=== PATIENT | female | born 1960 | race Caucasian/White ===

== ENCOUNTER 2016-10-03 19:38 | Emergency (ER) | payer OTHER ==
[~2016-10-03] VITALS: Ht 160 cm; Wt 102.1 kg
[2016-10-03 20:43] LABS: BASO % 0.3 % (0.0-1.0); EOS # 0.2 K/mm3 (0.0-0.50); EOS % 2.4 % (0.0-3.0); LARGE UNSTAINED CELL # 0.2 K/mm3 (0.0-0.4); LYMPH # 1.8 K/mm3 (1.5-4.5); MEAN CORPUSCULAR HGB CONC 32.3 g/dl (32.0-36.5); MEAN CORPUSCULAR VOLUME 92.8 fl (80.0-96.0); MONO # 0.5 K/mm3 (0.0-0.8); MONO % 5.8 % (0.0-5.0); NEUTROPHILS # 5.9 K/mm3 (1.8-7.7); NEUTROPHILS % 68.4 % (36.0-66.0); PLATELET COUNT, AUTOMATED 272 k/mm3 (150-450); RED CELL DISTRIBUTION WIDTH 13.6 % (11.5-14.5); WHITE BLOOD COUNT 8.6 K/mm3 (4.0-10.0)
[2016-10-03] MEDS ORDERED: ASPIRIN 325 MG TAB PO ONE (20:45)
[2016-10-03] MEDS ORDERED: ASPIRIN 81 MG CHEW TABLET As Ordered ONE (20:47)
[2016-10-03 20:53] LABS: ANION GAP 5 MEQ/L (8-16); BLOOD UREA NITROGEN 12 MG/DL (7-18); CALCIUM LEVEL 9.3 MG/DL (8.5-10.1); CARBON DIOXIDE LEVEL 30 MEQ/L (21-32); CHLORIDE LEVEL 104 MEQ/L (98-107); CREATININE FOR GFR 0.95 MG/DL (0.55-1.02); GLOMERULAR FILTRATION RATE > 60.0 (>51); GLUCOSE, FASTING 104 MG/DL (70-105); POTASSIUM SERUM 3.6 MEQ/L (3.5-5.1); SODIUM LEVEL 139 MEQ/L (136-145)
[2016-10-03 21:00] VITALS: BP 156/84
[2016-10-03] MEDS ORDERED: ATENOLOL 25 MG TAB PO ONE (21:00)
[2016-10-03 21:11] LABS: INR 1.03
[2016-10-03 21:26] LABS: ALBUMIN 3.6 GM/DL (3.2-5.2); ALKALINE PHOSPHATASE 70 U/L (45-117); ALT/SGPT 36 U/L (12-78); AST/SGOT 21 U/L (15-37); BILIRUBIN,DIRECT 0.2 MG/DL (0.0-0.2); BILIRUBIN,TOTAL 0.4 MG/DL (0.2-1.0); TOTAL PROTEIN 7.6 GM/DL (6.4-8.2)
[2016-10-03] MEDS ORDERED: SIMETHICONE 80 MG CHEW TAB PO ONE (21:45)
[2016-10-03 22:15] VITALS: BP 161/78
[2016-10-03] MEDS ORDERED: PRIL20CA9 PO (23:01)
[2016-10-03] MEDS ORDERED: SIME1CAP PO (23:01)
[2016-10-03] MEDS ORDERED: ATEN25TA PO (23:01)
--- NOTE | 2016-10-04 08:37 | ECGEPIP ---
Stationary ECG Study [facility] - ED Test Date: 2016-10-03 Pat Name: DELMY PRESLEY Department: Room: - Gender: F Office Associate: leah : 1960 Requested By: VINOD Alston Order Number: [id number] Reading MD: Nury Mehta Measurements Intervals [place] Rate: 65 P: 25 NM: 176 QRS: -7 QRSD: 105 T: 28 QT: 392 QTc: 408 Interpretive Statements SINUS RHYTHM WITH SINUS ARRHYTHMIA MODERATE VOLTAGE CRITERIA FOR LVH, CONSIDER NORMAL VARIANT ?PRIOR INFERIOR INFARCT NO PRIOR FOR COMPARISON Electronically Signed On 10-04-2016 8:37:32 EDT by Nury Mehta
--- NOTE | 2016-10-04 09:14 | REP ---
AP portable chest: 10/03/2016. Clinical history: Chest pain. No prior pertinent study. Lungs somewhat hypoinflated. The CP angles are sharply defined. There is no lateral pleural thickening, apical scarring, effusion or definite infiltrate. Fibronodular interstitial changes are suggested. The aorta is normal for age. Airway intact. Bones with some degenerative changes in the spine. Impression: 1. Hypoinflated chest with fibronodular interstitial changes and no gross cardiomegaly, shahab edema or dense consolidation. Signed by Wellington Barrios MD 10/04/2016 08:18 P
== END 2016-10-03 23:11 | disposition home or self-care (01) ==
LOC: M ED 21:18
DX: R10.13 Epigastric pain (principal); I10 Essential (primary) hypertension; E11.9 Type 2 diabetes mellitus without complications; Z87.891 Personal history of nicotine dependence

== ENCOUNTER 2016-10-06 22:04 | Emergency (ER) | payer OTHER ==
[~2016-10-06] VITALS: Ht 160 cm; Wt 102.1 kg
[~2016-10-06 22:04] MED LIST: ATEN25TA PO; PRIL20CA9 PO; SIME1CAP PO
[2016-10-06 22:05] VITALS: BP 189/86
[2016-10-07] MEDS ORDERED: GI COCKTAIL 50ML BTL(HYOSCYAMINE/MAALOX/LIDOCAINE VISCOUS)(1:3:1) PO ONE (02:45)
[2016-10-07 02:49] LABS: BASO % 0.6 % (0.0-1.0); EOS # 0.2 K/mm3 (0.0-0.50); LARGE UNSTAINED CELL # 0.1 K/mm3 (0.0-0.4); LARGE UNSTAINED CELL % 1.6 % (0.0-4.0); LYMPH # 1.8 K/mm3 (1.5-4.5); LYMPH % 21.7 % (24.0-44.0); MEAN CORPUSCULAR HEMOGLOBIN 30.4 pg (27.0-33.0); MEAN CORPUSCULAR HGB CONC 33.1 g/dl (32.0-36.5); MEAN CORPUSCULAR VOLUME 91.8 fl (80.0-96.0); MONO # 0.4 K/mm3 (0.0-0.8); MONO % 5.7 % (0.0-5.0); NEUTROPHILS # 5.1 K/mm3 (1.8-7.7); NEUTROPHILS % 67.4 % (36.0-66.0); PLATELET COUNT, AUTOMATED 253 k/mm3 (150-450); RED CELL DISTRIBUTION WIDTH 13.6 % (11.5-14.5); WHITE BLOOD COUNT 7.6 K/mm3 (4.0-10.0)
[2016-10-07 03:13] LABS: ANION GAP 8 MEQ/L (8-16); BLOOD UREA NITROGEN 15 MG/DL (7-18); CALCIUM LEVEL 8.5 MG/DL (8.5-10.1); CARBON DIOXIDE LEVEL 28 MEQ/L (21-32); CHLORIDE LEVEL 107 MEQ/L (98-107); CREATININE FOR GFR 0.97 MG/DL (0.55-1.02); GLOMERULAR FILTRATION RATE > 60.0 (>51); GLUCOSE, FASTING 143 MG/DL (70-105); SODIUM LEVEL 143 MEQ/L (136-145)
[2016-10-07] MEDS ORDERED: RANI15TA PO (04:59)
[2016-10-07] MEDS ORDERED: MAALSUS20 PO (04:59)
--- NOTE | 2016-10-07 06:22 | ECGEPIP ---
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
--- NOTE | 2016-10-07 08:26 | REP ---
Chest x-ray: Two views. History: Chest pain. Comparison chest x-ray is from October 03, 2016. Findings: There are old granulomatous residuals in the right lung and in the AP window region of the left mediastinal contour unchanged. The lungs are otherwise well inflated and clear. There are degenerative changes in the thoracic spine. Heart size is normal. Pulmonary vasculature is not increased. EKG monitoring electrodes overlie the chest. There is a right-sided cervical rib noted. Impression: No active cardiopulmonary disease. Right-sided cervical rib noted. Old granulomatous changes. Signed by Tobias Antoine MD 10/07/2016 10:14 A
--- NOTE | 2016-10-07 16:42 | ECGEPIP ---
Stationary ECG Study [facility] - ED Test Date: 2016-10-07 Pat Name: DELMY PRESLEY Department: Room: - Gender: F Fiber Optics Engineer: tejas : 1960 Requested By: VINOD Alston Order Number: [id number] Reading MD: Nury Mehta Measurements Intervals [place] Rate: 66 P: 38 [place]: 202 QRS: -6 QRSD: 114 T: 29 QT: 383 QTc: 401 Interpretive Statements SINUS RHYTHM MODERATE INTRAVENTRICULAR CONDUCTION DELAY MODERATE VOLTAGE CRITERIA FOR LVH, CONSIDER NORMAL VARIANT DECREASED RATE 10/06/16 Electronically Signed On 10-07-2016 16:42:41 EDT by Nury Mehta
== END 2016-10-07 05:19 | disposition home or self-care (01) ==
LOC: M ED 23:27
DX: R10.13 Epigastric pain (principal); Z79.899 Other long term (current) drug therapy

== ENCOUNTER → 2016-10-16 | Outpatient (CLI) | payer OTHER ==
[~2016-10-16] MED LIST changes: +MAALSUS20 PO; +RANI15TA PO
[2016-10-16 13:32] LABS: ALBUMIN 3.5 GM/DL (3.2-5.2); ALKALINE PHOSPHATASE 64 U/L (45-117); ALT/SGPT 34 U/L (12-78); AMYLASE 46 U/L (25-115); ANION GAP 6 MEQ/L (8-16); AST/SGOT 22 U/L (15-37); BILIRUBIN,TOTAL 0.5 MG/DL (0.2-1.0); BLOOD UREA NITROGEN 14 MG/DL (7-18); CALCIUM LEVEL 8.8 MG/DL (8.5-10.1); CARBON DIOXIDE LEVEL 31 MEQ/L (21-32); CHLORIDE LEVEL 105 MEQ/L (98-107); CHOLESTEROL LEVEL 166 MG/DL (<200); CREATININE FOR GFR 0.95 MG/DL (0.55-1.02); GLOMERULAR FILTRATION RATE > 60.0 (>51); GLUCOSE, FASTING 93 MG/DL (70-105); POTASSIUM SERUM 4.6 MEQ/L (3.5-5.1); SODIUM LEVEL 142 MEQ/L (136-145); TRIGLYCERIDES LEVEL 85 MG/DL (<150)
== END ==
LOC: M WUC 09:54
DX: R10.13 Epigastric pain (principal); R07.89 Other chest pain

== ENCOUNTER → 2016-10-16 | Outpatient (CLI) | payer OTHER ==
--- NOTE | 2016-10-16 11:14 | REP ---
RIGHT UPPER QUADRANT SONOGRAPHY: HISTORY: Epigastric pain. FINDINGS: Scanning through the right upper quadrant of the abdomen demonstrates a normal sized thin-walled gallbladder containing mobile 2.1 cm gallstone. No pericholecystic fluid is seen. Common bile duct is normal measuring 0.6 cm in greatest diameter. There is increased echogenicity in the liver and poor insonation consistent with fatty infiltration of the liver. No focal liver lesion is seen. Pancreas is largely obscured by abdominal gas. There is no evidence of ascites or right renal abnormality. The right kidney measures 10.1 x 4.8 x 4.3 cm. IMPRESSION: Cholelithiasis. Fatty infiltration of the liver. Signed by Tobias Antoine MD 10/16/2016 12:40 P
--- NOTE | 2016-10-17 06:16 | REP ---
Clinical: Abnormal uterine bleeding. Technique: Transabdominal pelvic ultrasound followed by transvaginal examination for better evaluation of the endometrium and adnexa. Findings: Bladder is unremarkable and measures 5.8 x 4.4 x 2.7 cm . Heterogeneous anteverted uterus measures 11.9 x 3.4 x 5.6 cm . The endometrial complex measures 13 mm thickness. No discrete uterine or endometrial abnormalities are appreciated. Few Nabothian cysts identified in the cervical region. Bilateral ovaries are normal in appearance and vascularity without evidence for torsion. Right ovary measures 2.6 x 1.5 x 1.9 cm. Left ovary measures 2.9 x 1.3 x 2.6 cm. No pelvic fluid or adnexal mass lesion . Impression: 1. Relatively normal pelvic ultrasound. Signed by Jermaine Crabtree MD 10/17/2016 06:07 A
== END ==
LOC: M RAD 08:44
PROVIDERS: ATTEND Nurse Practitioner Family
DX: R10.13 Epigastric pain (principal); K76.0 Fatty (change of) liver, not elsewhere classified; K80.20 Calculus of gallbladder without cholecystitis without obstruction; N93.8 Other specified abnormal uterine and vaginal bleeding

== ENCOUNTER → 2016-12-23 | Outpatient (CLI) | payer OTHER ==
[2016-12-23 18:08] LABS: BASO # 0.1 K/mm3 (0.0-0.2); BASO % 0.7 % (0.0-1.0); EOS # 0.2 K/mm3 (0.0-0.50); EOS % 2.7 % (0.0-3.0); LYMPH # 2.3 K/mm3 (1.5-4.5); LYMPH % 24.4 % (24.0-44.0); MEAN CORPUSCULAR HEMOGLOBIN 31.5 pg (27.0-33.0); MEAN CORPUSCULAR HGB CONC 33.3 g/dl (32.0-36.5); MEAN CORPUSCULAR VOLUME 94.6 fl (80.0-96.0); MONO # 0.5 K/mm3 (0.0-0.8); MONO % 6.2 % (0.0-5.0); NEUTROPHILS # 5.7 K/mm3 (1.8-7.7); NEUTROPHILS % 64.1 % (36.0-66.0); RED CELL DISTRIBUTION WIDTH 13.4 % (11.5-14.5); WHITE BLOOD COUNT 8.8 K/mm3 (4.0-10.0)
[2016-12-23 18:42] LABS: ALBUMIN 3.7 GM/DL (3.2-5.2); ALKALINE PHOSPHATASE 61 U/L (45-117); ALT/SGPT 34 U/L (12-78); ANION GAP 7 MEQ/L (8-16); AST/SGOT 23 U/L (15-37); BILIRUBIN,TOTAL 0.4 MG/DL (0.2-1.0); BLOOD UREA NITROGEN 12 MG/DL (7-18); CALCIUM LEVEL 8.7 MG/DL (8.5-10.1); CARBON DIOXIDE LEVEL 29 MEQ/L (21-32); CHLORIDE LEVEL 104 MEQ/L (98-107); FREE T4 1.15 NG/DL (0.76-1.46); GLOMERULAR FILTRATION RATE > 60.0 (>51); GLUCOSE, FASTING 68 MG/DL (70-105); POTASSIUM SERUM 3.9 MEQ/L (3.5-5.1); SODIUM LEVEL 140 MEQ/L (136-145); TOTAL PROTEIN 7.4 GM/DL (6.4-8.2)
[2016-12-23 19:30] LABS: CORTISOL BASELINE 12.6 UG/DL (4.3-22.4); PROGESTERONE 0.2 NG/ML
[2016-12-23 19:31] LABS: ESTRADIOL 39.8 PG/ML; FOLLICLE STIMULATING HORMONE 41.5 mIU/mL; PROLACTIN 5.1 NG/ML
== END ==
LOC: M WUC 14:07
PROVIDERS: ATTEND Obstetrics & Gynecology
DX: M92.60 Juvenile osteochondrosis of tarsus, unspecified ankle (principal)

== ENCOUNTER 2017-06-21 14:21 | Emergency (ER) | payer OTHER ==
[~2017-06-21] VITALS: Ht 160 cm; Wt 100.0 kg
[2017-06-21] MEDS ORDERED: AMLO5TAB2 PO (14:30)
[2017-06-21] MEDS ORDERED: NITR100C39 PO (14:30)
[2017-06-21 17:23] LABS: MUCUS, URINE RFX LARGE (NEGATIVE); SPECIFIC GRAVITY UR AUTO RFX 1.025 (1.002-1.035); SQUAM EPITHELIAL CELL UR AURFX 6 /HPF (0-6)
[2017-06-21 17:38] LABS: BASO # 0.1 10^3/uL (0.0-0.2); BASO % 0.8 % (0.0-1.0); EOS # 0.3 10^3/uL (0.0-0.50); EOS % 2.6 % (0.0-3.0); IMMATURE GRANULOCYTE % 0.6 % (0-0); LYMPH # 2.2 10^3/uL (1.5-4.5); LYMPH % 20.7 % (24.0-44.0); MEAN CORPUSCULAR HEMOGLOBIN 29.6 pg (27.0-33.0); MEAN CORPUSCULAR VOLUME 92.6 fl (80.0-96.0); MONO # 0.8 10^3/uL (0.0-0.8); MONO % 7.6 % (0.0-5.0); NEUTROPHILS # 7.2 10^3/uL (1.8-7.7); NEUTROPHILS % 67.7 % (36.0-66.0); PLATELET COUNT, AUTOMATED 428 10^3/uL (150-450); RED CELL DISTRIBUTION WIDTH 13.4 % (11.5-14.5); WHITE BLOOD COUNT 10.6 10^3/uL (4.0-10.0)
[2017-06-21 18:00] LABS: ALBUMIN 3.6 GM/DL (3.2-5.2); ALBUMIN/GLOBULIN RATIO 0.75 (1.00-1.93); ALKALINE PHOSPHATASE 73 U/L (45-117); ALT/SGPT 25 U/L (12-78); ANION GAP 7 MEQ/L (8-16); AST/SGOT 19 U/L (7-37); BILIRUBIN,DIRECT 0.1 MG/DL (0.0-0.2); BILIRUBIN,TOTAL 0.4 MG/DL (0.2-1.0); BLOOD UREA NITROGEN 14 MG/DL (7-18); CARBON DIOXIDE LEVEL 30 MEQ/L (21-32); CHLORIDE LEVEL 103 MEQ/L (98-107); CREATININE FOR GFR 0.87 MG/DL (0.55-1.02); GLOMERULAR FILTRATION RATE > 60.0 (>51); GLUCOSE, FASTING 80 MG/DL (70-105); SODIUM LEVEL 140 MEQ/L (136-145); TOTAL PROTEIN 8.4 GM/DL (6.4-8.2)
[2017-06-21 19:29] VITALS: BP 132/60
== END 2017-06-21 19:35 | disposition home or self-care (01) ==
LOC: M ED 14:21
DX: T83.518A Infection and inflammatory reaction due to other urinary catheter, initial encounter (principal); Y92.89 Other specified places as the place of occurrence of the external cause; Y93.89 Activity, other specified; Y99.9 Unspecified external cause status

== ENCOUNTER → 2021-04-18 | Outpatient (CLI) | payer OTHER ==
[~2021-04-18] MED LIST changes: +AMLO1TAB24 PO; +NITR100C39 PO
--- NOTE | 2021-04-18 16:17 | REP ---
INDICATION: HYPERTENSIONA AND MURMUR. COMPARISON: 10/07/2016 TECHNIQUE: PA and lateral FINDINGS: The cardiomediastinal silhouette lung coker are unchanged. 3 calcified granulomas are seen in the right lung unchanged from the prior exam. The lung coker are clear. The pleural angles are sharp. The heart is not enlarged. The osseous structures are within normal limits. IMPRESSION: There is no acute cardiopulmonary disease. <Electronically signed by Fer Jones > 04/18/21 [id number]
== END ==
LOC: M WUC 14:58
PROVIDERS: ATTEND Physician Assistant
DX: I10 Essential (primary) hypertension (principal); R01.1 Cardiac murmur, unspecified; J84.10 Pulmonary fibrosis, unspecified

== ENCOUNTER → 2021-08-19 | Outpatient (CLI) | payer OTHER | LOC: M WHC 15:01 | PROVIDERS: ATTEND Physician Assistant | DX: Z12.31 Encounter for screening mammogram for malignant neoplasm of breast (principal) ==

== ENCOUNTER → 2021-09-21 | Outpatient (CLI) | payer OTHER ==
[~2021-09-21] MED LIST changes: +ALBU8.5H; +LOSA50TA28
== END ==
LOC: M LABSMTC 10:37
PROVIDERS: ATTEND Anesthesiology
DX: Z01.812 Encounter for preprocedural laboratory examination (principal); Z20.828 Contact with and (suspected) exposure to other viral communicable diseases

== ENCOUNTER 2021-09-26 11:33 | Day surgery (SDC) | payer OTHER ==
[~2021-09-26] VITALS: Ht 160 cm; Wt 99.8 kg
[~2021-09-26 11:33] MED LIST changes: +NS 1,000 ML IV ONE
[2021-09-26] MEDS ORDERED: propofoL 200 MG/20 ML VIAL As Ordered ONE (12:07)
[2021-09-26] MEDS ORDERED: LIDOCAINE 2% 100MG/5ML SDV (FOR ANES.) As Ordered ONE (12:09)
[2021-09-26 13:30] VITALS: BP 127/68
== END 2021-09-26 13:40 | disposition home or self-care (01) ==
LOC: M OPP 11:33
PROVIDERS: ATTEND Surgery
DX: Z12.11 Encounter for screening for malignant neoplasm of colon (principal); D12.6 Benign neoplasm of colon, unspecified; K57.30 Diverticulosis of large intestine without perforation or abscess without bleeding; Z79.899 Other long term (current) drug therapy; Z87.891 Personal history of nicotine dependence

== ENCOUNTER → 2022-07-10 | Outpatient (CLI) | payer OTHER ==
[~2022-07-10] MED LIST changes: -NS 1,000 ML IV ONE
== END ==
LOC: M WHC 08:10
PROVIDERS: ATTEND Physician Assistant
DX: Z12.31 Encounter for screening mammogram for malignant neoplasm of breast (principal); D22.5 Melanocytic nevi of trunk

== ENCOUNTER → 2023-08-26 | Outpatient (CLI) | payer OTHER | LOC: M WHC 14:24 | PROVIDERS: ATTEND Physician Assistant | DX: Z12.31 Encounter for screening mammogram for malignant neoplasm of breast (principal); N63.13 Unspecified lump in the right breast, lower outer quadrant ==

== ENCOUNTER → 2023-09-15 | Outpatient (CLI) | payer OTHER | LOC: M WHC 12:52 | PROVIDERS: ATTEND Physician Assistant | DX: Z12.39 Encounter for other screening for malignant neoplasm of breast (principal); D24.1 Benign neoplasm of right breast ==

== ENCOUNTER 2024-10-07 18:50 | Emergency (ER) | payer OTHER ==
[~2024-10-07] VITALS: Ht 160 cm; Wt 100.0 kg
[2024-10-07 19:27] LABS: BASO % 0.6 % (0.0-1.0); EOS # 0.3 10^3/uL (0.0-0.5); EOS % 4.5 % (0.0-3.0); HEMOGLOBIN 13.3 g/dl (12.0-15.5); LYMPH % 13.6 % (24.0-44.0); MEAN CORPUSCULAR HEMOGLOBIN 31.2 pg (27.0-33.0); MEAN CORPUSCULAR HGB CONC 32.4 g/dl (32.0-36.5); MEAN CORPUSCULAR VOLUME 96.2 fl (80.0-96.0); MONO # 0.8 10^3/uL (0.0-0.8); MONO % 11.7 % (2.0-8.0); NEUTROPHILS # 4.9 10^3/uL (1.5-8.5); NEUTROPHILS % 69.3 % (36.0-66.0); PLATELET COUNT, AUTOMATED 210 10^3/uL (150-450); RED BLOOD COUNT 4.26 10^6/uL (4.00-5.40); WHITE BLOOD COUNT 7.1 10^3/uL (4.0-10.0)
[2024-10-07 19:42] LABS: INR 0.99; PARTIAL THROMBOPLASTIN TIME 29.5 SECONDS (24.8-34.2); PROTHROMBIN TIME 13.4 SECONDS (12.5-14.5)
[2024-10-07 19:49] LABS: ALBUMIN 3.5 G/DL (3.2-5.2); ALKALINE PHOSPHATASE 77 U/L (35-104); ALT/SGPT 20 U/L (7.0-40); AST/SGOT 14 U/L (<34); BILIRUBIN,DIRECT 0.1 MG/DL (<0.4); BILIRUBIN,TOTAL 0.4 MG/DL (0.3-1.2); BLOOD UREA NITROGEN 20 MG/DL (9-23); CALCIUM LEVEL 8.6 MG/DL (8.3-10.6); CARBON DIOXIDE LEVEL 30 MMOL/L (20-31); CHLORIDE LEVEL 103 MMOL/L (98-107); CK-MB VALUE MASS < 1.0 NG/ML (<3.6); CPK CREATINE PHOSPHOKINASE 46 U/L (34-145); CREATININE FOR GFR 1.17 MG/DL (0.55-1.30); GLOMERULAR FILTRATION RATE 52.8 (>45); GLUCOSE, FASTING 136 MG/DL (74-106); MB/CK RELATIVE INDEX 2.17 (< OR =4); POTASSIUM SERUM 4.2 MMOL/L (3.5-5.1); SODIUM LEVEL 139 MMOL/L (136-145)
[2024-10-07 19:50] LABS: FREE T4 1.14 NG/DL (0.89-1.76); THYROID STIMULATING HORMONE 2.568 uIU/ML (0.55-4.78)
[2024-10-07] MEDS: PANTOPRAZOLE 40MG VIAL IV ONE (20:03)
[2024-10-07] MEDS: ONDANSETRON 4MG 2ML VIAL IV ONE (20:04)
[2024-10-07] MEDS: NS (Normal Saline) 0.9% 1,000 ML IV ONE (20:04)
[2024-10-07] MEDS ORDERED: ISOVUE-370 76% 100ML VIAL As Ordered ONE (21:09)
[2024-10-07 21:43] LABS: CK-MB VALUE MASS < 1.0 NG/ML (<3.6); CPK CREATINE PHOSPHOKINASE 68 U/L (34-145); MB/CK RELATIVE INDEX 1.47 (< OR =4)
[2024-10-07 23:24] VITALS: BP 148/67; TEMP 97.9; O2SAT 98
== END 2024-10-07 23:29 | disposition home or self-care (01) ==
LOC: EDBD 18:50 → M ED 18:50
DX: K30 Functional dyspepsia (principal); I10 Essential (primary) hypertension; K80.20 Calculus of gallbladder without cholecystitis without obstruction; N28.1 Cyst of kidney, acquired; K57.30 Diverticulosis of large intestine without perforation or abscess without bleeding; M48.14 Ankylosing hyperostosis [Forestier], thoracic region
CPT/HCPCS: 71045; 71275; 74177; 80048; 80076; 82550; 82553; 84439; 84443; 84484; 85025; 85610; 85730; 87486; 87581; 87633; 87798; 93005; 93041; 94760; 96374; 96375; 99285; J2405; J2470; Q9967

== ENCOUNTER → 2024-10-13 | Outpatient (CLI) | payer OTHER | LOC: M WHC 09:43 | PROVIDERS: ATTEND Physician Assistant | DX: Z12.31 Encounter for screening mammogram for malignant neoplasm of breast (principal) ==

== ENCOUNTER 2025-01-14 15:16 | Inpatient (IN) | payer OTHER ==
[~2025-01-14] VITALS: Ht 160 cm; Wt 93.8 kg
[~2025-01-14 15:16] MED LIST changes: -LOSA50TA28; +LOSA50TA28 PO
[2025-01-14] MEDS ORDERED: SUCR1TAB56 PO (15:43)
[2025-01-14] MEDS ORDERED: PANT40TA29 PO (15:43)
[2025-01-14 16:33] LABS: BASO # 0.1 10^3/uL (0.0-0.2); BASO % 0.4 % (0.0-1.0); EOS # 0.2 10^3/uL (0.0-0.5); EOS % 1.8 % (0.0-3.0); LYMPH # 1.8 10^3/uL (1.5-5.0); LYMPH % 14.9 % (24.0-44.0); MONO # 1.1 10^3/uL (0.0-0.8); MONO % 9.1 % (2.0-8.0); NEUTROPHILS # 8.6 10^3/uL (1.5-8.5); NEUTROPHILS % 73.5 % (36.0-66.0); PLATELET COUNT, AUTOMATED 293 10^3/uL (150-450)
[2025-01-14] MEDS: PANTOPRAZOLE SODIUM 40 MG in D5W 50 ML IV SCH (16:40)
[2025-01-14 17:17] LABS: ALT/SGPT 14.0 U/L (7.0-40); AST/SGOT 18.0 U/L (<34); CALCIUM LEVEL 9.2 MG/DL (8.3-10.6); CARBON DIOXIDE LEVEL 28.0 MMOL/L (20-31); CHLORIDE LEVEL 103.0 MMOL/L (98-107); CREATININE FOR GFR 1.07 MG/DL (0.55-1.30); GLOMERULAR FILTRATION RATE 58.7 (>45); POTASSIUM SERUM 4.7 MMOL/L (3.5-5.1); SODIUM LEVEL 143.0 MMOL/L (136-145)
[2025-01-14 18:55] VITALS: BP 212/99
[2025-01-14] MEDS: KETOROLAC 30 MG/ML 1 ML VIAL IV ONE (18:55)
[2025-01-14] MEDS: LOSARTAN 50 MG TABLET PO ONE (18:55)
[2025-01-14] MEDS: PIPERACILLIN/TAZOBACTAM SOD 3.375 GM in DEXTROSE 5% (D5W) ADV/MINI-BAG 50 ML IV ONE (19:00)
[2025-01-15] MEDS ORDERED: HOME MED LIST COMPLETE! XX SCH (00:25)
[2025-01-15] MEDS: MORPHINE 2 MG/ML 1 ML VIAL IV PRN (01:55)
[2025-01-15 02:19] VITALS: BP 174/78; TEMP 97.5; O2SAT 97
[2025-01-15] MEDS: D5W/0.45% SODIUM CHLORIDE 1,000 ML IV SCH (02:49)
[2025-01-15] MEDS: PIPERACILLIN/TAZOBACTAM SOD 4.5 GM in DEXTROSE 5% (D5W) ADV/MINI-BAG 50 ML IV SCH (02:50)
[2025-01-15 03:01] VITALS: BP 173/78
[2025-01-15 04:40] VITALS: TEMP 97.5
[2025-01-15] MEDS: HEPARIN SOD 5000 UNITS/ML 1 ML VIAL/SYRINGE SC SCH (05:36)
[2025-01-15 07:54] LABS: PLATELET COUNT, AUTOMATED 249 10^3/uL (150-450)
[2025-01-15 08:00] VITALS: O2SAT 99
[2025-01-15] MEDS: PANTOPRAZOLE 40MG VIAL IV SCH (08:09)
[2025-01-15 08:35] LABS: C REACTIVE PROTEIN QUANTITATIV 7.0 MG/DL (<1.0)
[2025-01-15 08:51] LABS: ALT/SGPT 12.0 U/L (7.0-40); AST/SGOT 15.0 U/L (<34); CALCIUM LEVEL 8.5 MG/DL (8.3-10.6); CARBON DIOXIDE LEVEL 27.0 MMOL/L (20-31); CHLORIDE LEVEL 104.0 MMOL/L (98-107); CREATININE FOR GFR 1.21 MG/DL (0.55-1.30); GLOMERULAR FILTRATION RATE 50.7 (>45); POTASSIUM SERUM 4.2 MMOL/L (3.5-5.1); SODIUM LEVEL 142.0 MMOL/L (136-145)
[2025-01-15] MEDS ORDERED: MOXI1TAB PO (10:03)
[2025-01-15 12:00] VITALS: BP 154/76; TEMP 97.6; O2SAT 98
[2025-01-15] MEDS: MOXIFLOXACIN 400 MG TAB PO ONE (12:08)
[2025-01-15] MEDS: LOSARTAN 50 MG TABLET PO ONE (12:08)
[2025-01-15] MEDS ORDERED: LOSARTAN 50 MG TABLET PO SCH (21:00)
== END 2025-01-15 12:45 | disposition home or self-care (01) ==
LOC: M ED 15:16 → M ED INP 01-15 00:23 → M MS5PR 01-15 02:11
PROVIDERS: ADMIT Family Medicine; ATTEND Internal Medicine
DX: K81.0 Acute cholecystitis (principal); I10 Essential (primary) hypertension; Z90.79 Acquired absence of other genital organ(s); Z79.899 Other long term (current) drug therapy; D64.9 Anemia, unspecified; K21.9 Gastro-esophageal reflux disease without esophagitis; E66.9 Obesity, unspecified

== ENCOUNTER 2025-03-02 07:48 | Day surgery (SDC) | payer OTHER ==
[~2025-03-02] VITALS: Ht 160 cm; Wt 96.2 kg
[~2025-03-02 07:48] MED LIST changes: +MOXI1TAB PO; +PANT40TA29 PO; +SUCR1TAB56 PO
[2025-03-02] MEDS ORDERED: LR 1,000 ML IV SCH (08:00)
[2025-03-02] MEDS ORDERED: MIDAZOLAM INJ 2 MG/2 ML VIAL As Ordered ONE (08:10)
[2025-03-02] MEDS ORDERED: dexAMETHasone 4 MG/ML 1 ML VIAL As Ordered ONE (08:11)
[2025-03-02] MEDS ORDERED: KETOROLAC 30 MG/ML 1 ML VIAL As Ordered ONE (08:11)
[2025-03-02] MEDS ORDERED: ROCURONIUM BROMIDE 50MG/5ML VIAL As Ordered ONE (08:11)
[2025-03-02] MEDS ORDERED: LIDOCAINE 2% 100 MG/5 ML SDV (FOR ANES.) As Ordered ONE (08:11)
[2025-03-02] MEDS ORDERED: ONDANSETRON 4MG 2ML VIAL As Ordered ONE (08:11)
[2025-03-02] MEDS ORDERED: SUGAMMADEX SODIUM 500 MG/5 ML VIAL As Ordered ONE (08:11)
[2025-03-02] MEDS ORDERED: ACETAMINOPHEN 1000MG/100ML IV BAG As Ordered ONE (08:18)
[2025-03-02] MEDS ORDERED: HYDROmorphone HCL 2 MG/ML 1 ML VIAL As Ordered ONE (09:54)
[2025-03-02] MEDS ORDERED: LABETALOL 100 MG/20 ML VIAL As Ordered ONE (10:03)
[2025-03-02] MEDS ORDERED: MEPERIDINE 25 MG/ML 1 ML VIAL IV PRN (10:45)
[2025-03-02] MEDS: ONDANSETRON 4MG 2ML VIAL IV PRN (14:38)
[2025-03-02 15:10] VITALS: BP 178/79; TEMP 96.8; O2SAT 95
== END 2025-03-02 15:18 | disposition home or self-care (01) ==
LOC: M SDC 07:48
PROVIDERS: ATTEND Surgery
DX: K80.10 Calculus of gallbladder with chronic cholecystitis without obstruction (principal); I10 Essential (primary) hypertension; K21.9 Gastro-esophageal reflux disease without esophagitis; Z79.899 Other long term (current) drug therapy; Z90.710 Acquired absence of both cervix and uterus; Z87.891 Personal history of nicotine dependence
CPT/HCPCS: 47562; 88304; J0131; J0665; J1100; J1171; J1885; J1920; J2250; J2405; J3010; S2900